=== PATIENT | male | born 1955 | race Two or more races ===

== ENCOUNTER 2025-03-24 18:27 | Emergency (ER) | payer OTHER ==
[~2025-03-24] VITALS: Ht 160 cm; Wt 66.2 kg
[2025-03-24] MEDS ORDERED: ELIQUIS5 MG PO (18:52)
[2025-03-24] MEDS ORDERED: 0.9 % SODIUM CHLORIDE 1,000 ML IV SCH (19:15)
[2025-03-24 19:41] LABS: BASO % 0.5 % (0.1-1.2); EOS % 2.3 % (0.7-7.0); HEMATOCRIT 37.1 % (40.1-51.0); HEMOGLOBIN 12.4 g/dL (13.7-17.5); LYMPH # 0.77 (1.18-3.74); LYMPH % 17.3 % (19.3-53.1); MONO # 1.02 (0.24-0.82); NEUT # 2.52 (1.56-6.13); NEUT % 56.7 % (34.0-71.1); PLATELET COUNT 355 K/uL (163-369); RED BLOOD COUNT 4.59 M/uL (4.63-6.08); RED CELL DISTRIBUTION WIDTH 14.6 % (11.6-14.4)
[2025-03-24 20:01] LABS: CALCIUM 8.8 mg/dL (8.5-10.1); CREATININE SERUM 1.03 mg/dL (0.70-1.30); GFR 71.39; POTASSIUM 3.57 mEq/L (3.5-5.1)
[2025-03-24 20:49] LABS: PH,URINE 5.5 (5.0-8.0); URINE APPEARANCE Clear; URINE BILIRRUBIN Negative (NEGATIVE); URINE BLOOD Negative; URINE COLOR Yellow; URINE GLUCOSE Negative (NEGATIVE); URINE KETONE Negative (NEGATIVE); URINE LEUKOCYTE Negative; URINE NITRATE Negative; URINE PROTEIN 30 (NEGATIVE); URINE UROBILINOGEN 0.2 E.U./dl
[2025-03-24 20:54] LABS: URINE BACTERIA 25.6 uL (0.0-1933); URINE EPITHELIAL CELLS 26.1 uL (0.0-38.8); URINE RBC 3.5 uL (0.0-20.8); URINE WBC 15.6 uL (0.0-23.2)
[2025-03-24 21:06] LABS: URINE CAST 0.58 uL (0.0-1.40)
[2025-03-24 21:07] LABS: TYPE CELLS SQUAMOUS; URINE MUCUS SCANT
[2025-03-25] MEDS ORDERED: HYOSCYAMINE SULFATE 0.125 MG TAB.SUBL SL STA ×2 (00:36→06:37)
[2025-03-25] MEDS ORDERED: NIFEDIPINE 10 MG CAPSULE PO STA (00:36)
[2025-03-25] MEDS ORDERED: NIFEDIPINE 10 MG CAPSULE PO ONE (00:37)
[2025-03-25] MEDS ORDERED: HYOSCYAMINE SULFATE 0.125 MG TAB.SUBL ONE ×2 (00:37→06:35)
[2025-03-25] MEDS ORDERED: 0.9 % SODIUM CHLORIDE 1,000 ML IV ONE (00:45)
[2025-03-25] MEDS ORDERED: ONDANSETRON HCL 2 MG/ML VIAL ONE (06:35)
[2025-03-25] MEDS ORDERED: ONDANSETRON HCL 2 MG/ML VIAL IV STA (06:37)
[2025-03-25] MEDS ORDERED: ZOFRAN8 MG PO (06:54)
[2025-03-25] MEDS ORDERED: LEVSIN/SL0.125 MG SL (06:54)
== END 2025-03-25 07:59 ==
LOC: ER 20:53
PROVIDERS: Emergency Medicine
DX: R10.9 Unspecified abdominal pain (principal)
CPT/HCPCS: 36415; 74177; 96365; 96366; 99284; J2405; J7030; Q9965